=== PATIENT | male | born 1965 | race Caucasian/White ===

== ENCOUNTER 2025-02-02 | Emergency (ER) | payer OTHER, SELFPAY ==
[2025-02-02] VITALS (7 sets, daily range): BP systolic 117–150; BP diastolic 75–85; BMI 24.8
[2025-02-02 00:47] LABS: ALT (SGPT) 40 U/L (0-50); AST (SGOT) 29 U/L (17-59); Albumin 4.9 g/dl (3.5-5.0); Alkaline Phosphatase 111 U/L (38-126); Blood Urea Nitrogen 29 mg/dl (9-20); Calcium 10.0 mg/dl (8.4-10.2); Carbon Dioxide 32 mmol/L (22-30); Chloride 99 mmol/L (98-107); Glucose 192 mg/dl (70-99); Potassium 4.1 mmol/L (3.5-5.1); Sodium 139 mmol/L (135-145); Total Protein 7.3 g/dl (6.3-8.2); eGFR > 60.00
[2025-02-02 00:51] LABS: Hematocrit 45.8 % (39.0-52.0); Hemoglobin 15.8 g/dL (13.0-18.0); Mean Corp Hgb Conc. 34.5 g/dL (33.0-37.0); Mean Corpuscular Volume 87.6 fL (80.0-94.0); Nucleated Red Blood Cells % 0 % (-); Platelet Count 232 10^3/uL (130-400); Red Cell Dist. Width 12.5 % (11.5-14.5)
[2025-02-02 00:58] LABS: Troponin I 0.013 ng/ml
--- NOTE | 2025-02-02 04:10 | ED.GENMED ---
History of Present Illness
General
Chief Complaint: Chest Pain
Source: patient
Exam Limitations: none
Time Seen by Provider: 02/02/25 03:52
History of Present Illness
History of Present Illness:
Note:
CHIEF COMPLAINT(S)
Syncope and tingling sensation in the left hand
HISTORY OF PRESENT ILLNESS
The patient is a 60-year-old male who presented with an episode of syncope earlier today. The event involved feeling hot, despite the ambient warm weather, and experiencing tingling in the left hand and wrist, which was a new symptom for the
patient. The patient reported that they checked their blood pressure at home and recorded values as high as 180/140 mmHg, which subsequently decreased after multiple readings, dropping significantly to 80 systolic with a pulse rate of 42. The
patient experienced sweating and ultimately lost consciousness. Following the episode, the patient reports feeling fine. The patient has a remote history of being diagnosed with paroxysmal supraventricular tachycardia and previous evaluations have
included the use of a case monitor which did not reveal sustained arrhythmias, despite symptomatic episodes.
The patient described previous similar episodes, labeled as vasovagal syncope, which occur infrequently. Currently, the patient experiences no pain but mentioned feeling off during the episode. In response, a repeat blood component test was
suggested to rule out any biochemical alterations.
The patient denies smoking but does use marijuana daily, primarily for restless leg syndrome and to alleviate side effects of Mirapex (pramipexole), such as nausea. The patient acknowledges the potential for increased nausea with consistent
marijuana use.
SOCIAL DETERMINANTS AFFECTING HEALTH
The patient uses marijuana daily to manage symptoms of restless leg syndrome and side effects of pramipexole.
SOCIAL HISTORY
The patient reports using marijuana daily primarily to alleviate symptoms of restless leg syndrome and the side effects of Mirapex (pramipexole). The patient denies the use of tobacco or other drugs.
MEDICATIONS
- Mirapex (pramipexole)
- Lasix (furosemide)
- Neurontin (gabapentin)
- Mirtazapine
- Metoprolol 25 mg, prescribed for hypertension and possible arrhythmia
REVIEW OF SYSTEMS
- Cardiovascular: Reports a history of high blood pressure and syncope episodes.
- Neurologic: Tingling sensation in left hand and wrist, syncope episode.
- General: Feeling hot, sweating, and subsequent syncope.
PHYSICAL EXAM
- General: Well-developed male, no distress noted, resting comfortably
- Eyes: Pupils equal, round, and reactive to light
- Cardiovascular: Regular rate and rhythm, no murmurs auscultated
- Respiratory: Lungs clear to auscultation bilaterally
- Abdomen: Non-distended, no organomegaly
- Extremities: No edema or ulcers
- Neurologic: Cranial nerves II through XII intact, no deficits noted
PLAN
- Perform a repeat blood component test to check for any biochemical changes.
- Follow-up with a boomswing operator for further monitoring, possibly wearing a Holter monitor.
- Educate the patient on the nature of vasovagal syncope and discuss management strategies.
- Advise the patient on the potential side effects of daily marijuana use and consider alternatives for restless leg symptom management.
DIFFERENTIAL DIAGNOSIS
The Differential Diagnosis includes, in no particular order and is not limited to:
1. Vasovagal syncope
2. Orthostatic hypotension
3. Paroxysmal supraventricular tachycardia
4. Cardiovascular arrhythmia
5. Transient ischemic attack
6. Anxiety or panic attack
7. Electrolyte imbalance
8. Dehydration
9. Drug-induced syncope (considering marijuana use)
10. Hypertensive crisis
EKG
My independent EKG interpretation is:
- Time of EKG: Not specified
- Rhythm: Normal sinus rhythm
- Heart Rate: 69 beats per minute
- QRS Duration: Normal
- QT Interval: Normal
- [place]: Normal
- Abnormalities: None noted
CARE-UPDATE
02/02/25 - 06:34
Patient remains symptom-free and expresses a desire to be discharged. Experienced an episode of nocturnal bradycardia, with heart rate dropping into the 40s. Consultation with Dr. Geronimo recommended observation, but the patient declined.
Arrangements will be made for outpatient follow-up in the office.
Disposition:
SUMMARY OF ENCOUNTER
The patient, a 60-year-old male, presented to the emergency department after experiencing an episode of syncope accompanied by palpitations. Management in the emergency department involved stabilization, assessment of potential causes for syncope,
and the provision of patient education regarding precautionary measures to avoid similar episodes in the future.
DISPOSITION
Discharge to follow up with cardiology.
ASSESSMENT
The patients syncope and palpitations were assessed as potentially related to previous cardiovascular conditions, warranting further evaluation by a boomswing operator.
PLAN
- Arrange for cardiology follow-up to investigate potential underlying cardiovascular issues associated with syncope and palpitations.
- Educate the patient on precautions to minimize the risk of future syncope episodes.
PATIENT EDUCATION AND COUNSELING
The patient was provided with thermal precautions and advised on signs and symptoms that warrant immediate medical attention.
FOLLOW-UP INSTRUCTIONS
The patient should schedule a follow-up with a boomswing operator and adhere to the advised return precautions.
MEDICATION RECONCILIATION
No emergency medications administered or prescribed at the time of discharge.
MEDICAL DECISION MAKING
-Chronic conditions affecting care: The patient has a history of cardiovascular issues including syncope, palpitations, and paroxysmal supraventricular tachycardia, which comprise a differential diagnosis that includes vasovagal syncope, orthostatic
hypotension, cardiovascular arrhythmia, and other related causes.
-Data:
Category 2
My independent interpretation of EKG indicated normal sinus rhythm with a heart rate of 69 beats per minute. No abnormalities were noted.
-Risk:
Consideration of Admission/Observation: Escalation of care including admission/observation was considered given the complexity and risk of the patients presenting complaint. However, ultimately I feel the patient is safe for outpatient management
with close follow-up. Reasoning: The work-up is reassuring with no acute life-threatening processes identified, symptoms are well controlled, and the patient is stable and agreeable with discharge.
Care significantly affected by Social Determinants of Health: The patients daily marijuana use for restless leg syndrome management and medication side effects.
DIAGNOSIS
- Syncope (ICD-10 code R55)
- Palpitations (ICD-10 code R00.2)
Past History
Past History
ED Past Medical History: Hypercholesterolemia
ED Past Surgical History: Appendectomy
Social History
Tobacco: Non-smoker
Drug: Marijuana (medical use)
Personal:
Living: with family
Employment: Employed
Phy Exam
Physical Exam
Physical Exam:
.
Scores
Heart Score for Chest Pain Patients
STEMI patient?: Not applicable
Course
Orders/Labs/Results
Orders:
Orders
02/02/25 00:05
ECG [Electrocardiogram (*1)] Urgent
Reason for Study: Chest Pain
02/02/25 00:06
EKG- Treatment ONCE
02/02/25 00:14
Complete Blood Count/With Diff Urgent
Comprehensive Metabolic Panel Urgent
Troponin I Urgent
02/02/25 04:17
EKG [Electrocardiogram (*1)] Urgent
Reason for Study: Syncope
Other Reason for Exam: repeat ekg
EKG- Treatment ONCE
02/02/25 04:23
Troponin I Urgent
Abnormal Lab Results
02/02/25
00:14
Abs Immat Gran (auto) 0.1 H 10^3/uL
(0-0.05)
Absolute Monos (auto) 0.9 H 10^3/uL
(0.1-0.6)
Immature Gran % 0.8 H %
(0-0.5)
Monocytes % 10.2 H %
(1.7-9.3)
Carbon Dioxide 32 H mmol/L
(22-30)
BUN 29 H mg/dl
(9-20)
Glucose 192 H mg/dl
(70-99)
07/30/25 00:14
02/02/25 00:14
Vital Signs
Initial and Last Documented VS:
Initial Vital Signs
Temp Pulse Resp BP Pulse Ox
97.8 F 76 20 140/82 100
02/02/25 00:10 02/02/25 00:10 02/02/25 00:10 02/02/25 00:10 02/02/25 00:10
Last Documented Vital Signs
Temp Pulse Resp BP Pulse Ox
97.8 F 66 15 150/77 98
02/02/25 00:10 02/02/25 06:00 02/02/25 06:00 02/02/25 06:00 02/02/25 06:00
*Pulse Oximetry
SaO2: 100
Oxygen Mode of Delivery: Room air
Patient hypoxic: no
*Critical Care Note
Total Time (30-74mins, 75-104mins- exclusive of procedures): Not Applicable
ED Attending Note
-
Portions of this chart may have been created with voice recognition software.� Occasional wrong word or��sound alike� substitutions may have occurred due to the inherent limitations of voice recognition software.
Discharge Plan
Departure
Patient Disposition: Home (Routine Discharge)
Date of Disposition: 02/02/25
Time of Disposition: 06:39
Patient with high blood pressure during this ER visit?: Yes
Condition: Good
Discharge Problem:
Syncope
Instructions: Syncope (Fainting) (DC), BLOOD PRESSURE
Prescriptions:
No Action
pramipexole 0.5 MG tablet
1 mg PO QPM
ibuprofen 200 MG tablet
200 mg PO Q4HPRN PRN (Reason: fevers)
cholecalciferol (vitamin D3) 1,000 UNITS tablet
1,000 units PO DAILY
metoprolol succinate 50 MG tablet extended release 24 hr
25 mg PO QPM Qty: 0 0RF
Referrals:
Anette Fall PA-C [Family Provider, Family Practice]
Interventions
Interventions:
*Risk Screen - Suicide Last Done: 02/02/25 00:10
*General Assessment Last Done: 02/02/25 01:49
*Neglect/Abuse Screening Last Done: 02/02/25 00:10
*ED- Fall Risk Assessment Last Done: 02/02/25 01:49
*ED COVID-19 Vaccine History Last Done: 02/02/25 01:49
ED- Cardiac Assessment Last Done: 02/02/25 01:53
ED- Neurological Assessment Last Done: 02/02/25 01:53
Discharge Date and Time
Print Language: [place]
[2025-02-02 05:04] LABS: Troponin I < 0.012 ng/ml
== END 2025-02-02 07:00 | disposition home or self-care (01) ==
LOC: EMR
PROVIDERS: Emergency Medicine; EMERGENCY PHYSICIAN Emergency Medicine; FAMILY PHYSICIAN Physician Assistant Medical; REFERRING PHYSICIAN Internal Medicine
DX: R55 Syncope and collapse (principal); R20.2 Paresthesia of skin; F12.90 Cannabis use, unspecified, uncomplicated; G25.81 Restless legs syndrome; E78.00 Pure hypercholesterolemia, unspecified
CPT/HCPCS: 99284; 80053; 84484; 85025; 93005

== ENCOUNTER → 2025-02-17 08:50 | Outpatient (REF) | payer OTHER, SELFPAY | LOC: RCS 08:50 | PROVIDERS: ATTENDING PHYSICIAN Internal Medicine Cardiovascular Disease; FAMILY PHYSICIAN Physician Assistant Medical | DX: R55 Syncope and collapse (principal) | CPT/HCPCS: 93017; 93350 ==